=== PATIENT | male | born 1975 | race Caucasian/White ===

== ENCOUNTER 2017-07-16 14:24 | Emergency (ER) | payer OTHER ==
[2017-07-16 14:28] VITALS: BP 117/70; PULSE 89; RESP 18; TEMP 97.9; O2SAT 98
== END 2017-07-16 15:58 | disposition left against medical advice (07) ==
DX: Z53.21 Procedure and treatment not carried out due to patient leaving prior to being seen by health care provider (principal)

== ENCOUNTER → 2017-07-19 | Outpatient (CLI) | payer OTHER | LOC: GIMAGING 14:13 | PROVIDERS: ATTEND Nurse Practitioner Family | DX: R19.4 Change in bowel habit (principal); M47.896 Other spondylosis, lumbar region | CPT/HCPCS: 74018-PO ==

== ENCOUNTER 2017-07-23 22:15 | Emergency (ER) | payer OTHER ==
[2017-07-23 22:21] VITALS: RESP 18
--- NOTE | 2017-07-23 23:46 | EDPHY ---
H & P Stated Complaint: constipation with some nausea x 2 weeks Time Seen by Provider: 07/23/17 23:26 HPI/ROS: Chief Complaint: Constipation, nausea HPI: 41-year-old male states that he has been having constipation nausea for the last 2 weeks. He is taking multiple oral treatments and Fleet enemas without success. He is feeling bloated. He is only passing occasional liquid stool. He has been taking Colace, MiraLax and milk of magnesia. Also has had 3 Fleet's enemas. Is concerned because he has a family history of colon cancer. Some mild left lower abdominal discomfort. No fevers or chills. No abdominal surgeries in the past. ROS: 10 point Review of Systems is negative except as noted in the HPI. PMH: Denies Social History: No smoking, no alcohol, no recreational drug use Family History: non-contributory Physical Exam: Gen: Awake, Alert, No Distress HEENT: Nose: no rhinorrhea Eyes: PERRLA, EOMI Mouth: Moist mucosa Neck: Supple, no JVD Chest: nontender, lungs clear to auscultation Heart: S1, S2 normal, no murmur Abd: Soft, non-tender, no guarding Back: no CVA tenderness, no midline tenderness Ext: no edema, non-tender Skin: no rash Neuro: CN II-XII intact, Sensation grossly intact, Strength 5/5 in bilateral upper and lower extremities - Personal History Current Tetanus/Diphtheria Vaccine: Yes Current Tetanus Diphtheria and Acellular Pertussis (TDAP): Yes - Medical/Surgical History Hx Asthma: No Hx Chronic Respiratory Disease: No Hx Diabetes: No Hx Cardiac Disease: No Hx Renal Disease: No Hx Cirrhosis: No Hx Alcoholism: No Hx HIV/AIDS: No Hx Splenectomy or Spleen Trauma: No Other PMH: stroke 2007, scar tissue heart? - Social History Smoking Status: Former smoker Constitutional: Initial Vital Signs Temperature (C) 36.9 C 07/23/17 22:19 Heart Rate 77 07/23/17 22:19 Respiratory Rate 18 07/23/17 22:19 Blood Pressure 129/94 H 07/23/17 22:19 O2 Sat (%) 96 07/23/17 22:19 O2 Delivery Mode Room Air Allergies/Adverse Reactions: No Known Allergies Allergy (Unverified 07/19/14 17:54) Home Medications: Medication Instructions Recorded No Home Meds 07/19/14 Medical Decision Making - Diagnostics Imaging Results: Imaging Impressions Abdomen X-Ray 07/23/17 23:44 Impression: Normal bowel pattern. No significant constipation. ED Course/Re-evaluation: Abdominal x-ray shows no significant constipation and has a normal bowel gas pattern. Urinalysis is negative. Patient's abdomen is soft and benign. There is no tenderness or fullness. There is no distension. No evidence of acute infectious or surgical process at this time. Patient will be discharged with referral for Gastroenterology for further evaluation of his symptoms. He will return for anything worsening. - Data Points Laboratory Results: 07/23/17 23:45 Urine Color COLORLESS Urine Appearance CLEAR Urine pH 6.0 (5.0-7.5) Ur Specific Amo 1.001 L (1.002-1.030) Urine Protein NEGATIVE (NEGATIVE) Urine Ketones NEGATIVE (NEGATIVE) Urine Blood NEGATIVE (NEGATIVE) Urine Nitrate NEGATIVE (NEGATIVE) Urine Bilirubin NEGATIVE (NEGATIVE) Urine Urobilinogen NEGATIVE EU EU (0.2-1.0) Ur Leukocyte Esterase NEGATIVE (NEGATIVE) Urine Glucose NEGATIVE (NEGATIVE) Departure - Departure Disposition: Home, Routine, Self-Care Clinical Impression: Abdominal pain Condition: Good Instructions: Gas and Bloating (ED), Abdominal Pain (ED) Additional Instructions: Follow up with Gastroenterology in 3-4 days for further evaluation. Return to the emergency depart for increasing abdominal pain, nausea vomiting, fevers, chills, or any other concerns. Referrals: Ramin Roy MD, FACG [Medical Doctor] - As per Instructions
[2017-07-24 00:32] VITALS: BP 113/85; PULSE 94; TEMP 98.2; O2SAT 97
== END 2017-07-24 00:38 | disposition home or self-care (01) ==
DX: R10.9 Unspecified abdominal pain (principal); Z87.891 Personal history of nicotine dependence